=== PATIENT | female | born 2000 | race Hispanic/Latino ===

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

== ENCOUNTER 2021-02-10 11:23 | Emergency (ER) | payer BC ==
[2021-02-10] MEDS ORDERED: Acetaminophen 500 MG TAB ONE (11:55)
== END 2021-02-10 12:25 | disposition home or self-care (01) ==
LOC: BURERS 11:23
DX: S61.002A Unspecified open wound of left thumb without damage to nail, initial encounter (principal); W26.9XXA Contact with unspecified sharp object(s), initial encounter
CPT/HCPCS: 99283